=== PATIENT | female | born 1990 | race Caucasian/White ===

== ENCOUNTER 2020-12-04 06:32 | Day surgery (SDC) | payer OTHER ==
[2020-12-01 10:54] VITALS: BMI 18.6
[2020-12-04] MEDS ORDERED: ROPIVACAINE HCL 0.5% 30ML VIAL ONE (07:09)
[2020-12-04] MEDS ORDERED: MIDAZOLAM HCL 2 MG/2 ML SINGLE DOSE VIAL ONE (07:10)
[2020-12-04] MEDS ORDERED: DEXMEDETOMIDINE HCL 200 MCG/2 ML IVPB ONE (07:11)
[2020-12-04] MEDS ORDERED: PROPOFOL 20 ML ONE ×2 (07:20)
[2020-12-04] MEDS ORDERED: ROCURONIUM BROMIDE 50 MG/5 ML SYRINGE ONE (07:20)
[2020-12-04] MEDS ORDERED: EPINEPHrine 1:1,000 1 MG/1 ML - 30ML VIAL (INJECTION) ONE (07:26)
[2020-12-04] MEDS ORDERED: ACETAMINOPHEN 1000 MG/100 ML VIAL (NON FORMULARY) IVPB PRN (10:09)
[2020-12-04] MEDS ORDERED: ONDANSETRON 4 MG/2 ML VIAL IVPUSH PRN (10:09)
[2020-12-04] MEDS ORDERED: oxyCODONE HCL 5 MG TABLET PO PRN (10:09)
[2020-12-04] MEDS ORDERED: LACTATED RINGERS SOLUTION 1,000 ML IV SCH (10:15)
[2020-12-04 10:29] VITALS: TEMP 96.8
[2020-12-04 11:41] VITALS: BP 110/65; PULSE 71
[2020-12-04] MEDS ORDERED: oxyCODONE HCL 5 MG TABLET ONE (12:08)
== END 2020-12-04 13:04 | disposition home or self-care (01) ==
LOC: FASU 06:32
PROVIDERS: ATTEND Orthopaedic Surgery Sports Medicine
PROC: 0MRP47Z Replacement of Left Knee Bursa and Ligament with Autologous Tissue Substitute, Percutaneous Endoscopic Approach (ICD-10-PCS; principal; 2020-12-04 08:32)
DX: S83.512A Sprain of anterior cruciate ligament of left knee, initial encounter (principal); M65.862 Other synovitis and tenosynovitis, left lower leg; X58.XXXA Exposure to other specified factors, initial encounter; Y92.9 Unspecified place or not applicable; Y93.9 Activity, unspecified
CPT/HCPCS: 29888; C1776; 81025; 88304-TC; 94760; J0131